=== PATIENT | male | born 1985 | race Caucasian/White ===

== ENCOUNTER → 2020-08-06 | Outpatient (CLI) | payer OTHER | END | disposition home or self-care (01) | LOC: CFH 10:29 | PROVIDERS: ATTEND Physician Assistant Surgical | DX: S92.124A Nondisplaced fracture of body of right talus, initial encounter for closed fracture (principal); X58.XXXA Exposure to other specified factors, initial encounter; Y93.89 Activity, other specified; Y92.89 Other specified places as the place of occurrence of the external cause; Y99.8 Other external cause status ==